=== PATIENT | female | born 1960 | race Caucasian/White ===

== ENCOUNTER 2018-08-10 08:50 | Day surgery (SDC) | payer OTHER, BC ==
[~2018-08-10] VITALS: Ht 167.6 cm; Wt 134.8 kg
[~2018-08-10 08:50] MED LIST: Adult Low Dose81 MG; COCONUT OIL; ESOM20 PO; ESTRADIOL PO; FISH1000; GLIP5 PO; INSDET100; MAGOXI400; META800 PO; MULVITMIND; Metformin HCl500 MG PO; NAPR500 PO; Norco 10-325 T1 EACH PO; OXYACE5T PO; OXYC5 PO; Prinivil10 MG PO; RXOXYACE PO; VITAMIN E
== END 2018-08-10 10:55 | disposition home or self-care (01) ==
LOC: ORSCSDS 08:50
PROVIDERS: Internal Medicine Gastroenterology
PROC: 0DBK8ZX Excision of Ascending Colon, Via Natural or Artificial Opening Endoscopic, Diagnostic (ICD-10-PCS; principal; 2018-08-10 10:15)
PROC: 0DBM8ZX Excision of Descending Colon, Via Natural or Artificial Opening Endoscopic, Diagnostic (ICD-10-PCS; principal; 2018-08-10 10:15)
DX: Z12.11 Encounter for screening for malignant neoplasm of colon (principal); D12.4 Benign neoplasm of descending colon; D12.3 Benign neoplasm of transverse colon; K63.5 Polyp of colon; I10 Essential (primary) hypertension; E11.9 Type 2 diabetes mellitus without complications; K21.9 Gastro-esophageal reflux disease without esophagitis; E66.01 Morbid (severe) obesity due to excess calories; Z68.42 Body mass index [BMI] 45.0-49.9, adult; Z79.899 Other long term (current) drug therapy
CPT/HCPCS: 82947; 88305; J2405; J7120

== ENCOUNTER 2022-02-19 08:51 | Day surgery (SDC) | payer BC ==
[~2022-02-19] VITALS: Ht 167.6 cm; Wt 111.7 kg
[~2022-02-19 08:51] MED LIST changes: +ACET500 PO; +ALBU90OI INH; +GABA300 PO; +HYDCHL25 PO; +LOSARTAN POTAS100 M1 PO; +Methocarbamol500 MG PO; +Norco 5-325 Ta1 EACH PO; +OZEMPIC2 MG/0.75 SQ; +SEMGLEE (Y100 UNIT/2 SQ
[2022-02-19] MEDS ORDERED: Prinivil10 MG (09:54)
--- NOTE | 2022-02-19 10:41 | NUR ---
02/19/22 1041 Natasha Rene RELAXING MEDICAITON PROVIDED BY DR. DYER. PT TOLERATED PROCEEDURE WELL
== END 2022-02-19 11:27 | disposition home or self-care (01) ==
LOC: ORSCSDS 08:51
PROVIDERS: Orthopaedic Surgery
PROC: 0LN70ZZ Release Right Hand Tendon, Open Approach (ICD-10-PCS; principal; 2022-02-19 10:30)
DX: M65.331 Trigger finger, right middle finger (principal); I10 Essential (primary) hypertension; E11.9 Type 2 diabetes mellitus without complications; E66.01 Morbid (severe) obesity due to excess calories; Z68.39 Body mass index [BMI] 39.0-39.9, adult; F17.210 Nicotine dependence, cigarettes, uncomplicated; Z79.4 Long term (current) use of insulin; Z79.899 Other long term (current) drug therapy
CPT/HCPCS: 82947; J2250; J3010

== ENCOUNTER 2023-03-03 11:54 | Day surgery (SDC) | payer OTHER ==
[~2023-03-03] VITALS: Ht 167.6 cm; Wt 121.1 kg
[~2023-03-03 11:54] MED LIST changes: +Prinivil10 MG
[2023-03-03] MEDS ORDERED: RYBELSUS3 MG PO (12:33)
[2023-03-03] MEDS ORDERED: ONDA4 (12:34)
[2023-03-03] MEDS ORDERED: OMEP20ER PO (12:34)
[2023-03-03] MEDS ORDERED: MECL25 (12:34)
[2023-03-03] MEDS ORDERED: AMLO5 PO (12:34)
[2023-03-03] MEDS ORDERED: FARXIGA10 MG PO (12:35)
[2023-03-03] MEDS ORDERED: TRAZ50 PO (12:35)
--- NOTE | 2023-03-03 12:41 | NUR ---
03/03/23 1241 Ny Campos CALL LIGHT WITHIN REACH. TETRACAINE IN LEFT EYE AT 1236 AND PLEDGETT IN AT 1238
[2023-03-03 14:00] VITALS: BP 138/74
== END 2023-03-03 14:14 | disposition home or self-care (01) ==
LOC: ORSCSDS 11:54
PROVIDERS: Ophthalmology
PROC: 08RK3JZ Replacement of Left Lens with Synthetic Substitute, Percutaneous Approach (ICD-10-PCS; principal; 2023-03-03 13:30)
DX: E11.36 Type 2 diabetes mellitus with diabetic cataract (principal); H25.13 Age-related nuclear cataract, bilateral; I10 Essential (primary) hypertension; J44.9 Chronic obstructive pulmonary disease, unspecified; F17.210 Nicotine dependence, cigarettes, uncomplicated; E66.01 Morbid (severe) obesity due to excess calories; Z68.41 Body mass index [BMI] 40.0-44.9, adult; K21.9 Gastro-esophageal reflux disease without esophagitis; Z79.4 Long term (current) use of insulin; Z79.899 Other long term (current) drug therapy; Z79.82 Long term (current) use of aspirin
CPT/HCPCS: 82947; J2001; J2250; J3010; J3301; J7040; V2632

== ENCOUNTER 2023-03-10 12:58 | Day surgery (SDC) | payer OTHER ==
[~2023-03-10] VITALS: Ht 167.6 cm; Wt 118.9 kg
[~2023-03-10 12:58] MED LIST changes: +AMLO5 PO; +FARXIGA10 MG PO; +MECL25; +OMEP20ER PO; +ONDA4; +RYBELSUS3 MG PO; +TRAZ50 PO
--- NOTE | 2023-03-10 14:07 | NUR ---
03/10/23 1407 Rashmi Hoffmann TETRACAINE IN RIGHT EYE AT 1355. PLEDGET PLACED IN RIGHT EYE AT 1357. PATIENT TOLERATED WELL.
[2023-03-10 15:00] VITALS: BP 119/70
--- NOTE | 2023-03-10 15:06 | NUR ---
03/10/23 1506 Rufina Ordaz IV REMOVED, CANNULA INTACT PT AISHWARYA WELL. PT DENIES NAUSEA AND PAIN
== END 2023-03-10 15:15 | disposition home or self-care (01) ==
LOC: ORSCSDS 12:58
PROVIDERS: Ophthalmology
PROC: 08RJ3JZ Replacement of Right Lens with Synthetic Substitute, Percutaneous Approach (ICD-10-PCS; principal; 2023-03-10 14:30)
DX: E11.36 Type 2 diabetes mellitus with diabetic cataract (principal); H25.11 Age-related nuclear cataract, right eye; Z96.1 Presence of intraocular lens; I10 Essential (primary) hypertension; J44.9 Chronic obstructive pulmonary disease, unspecified; E66.9 Obesity, unspecified; Z68.41 Body mass index [BMI] 40.0-44.9, adult; F17.210 Nicotine dependence, cigarettes, uncomplicated; Z79.4 Long term (current) use of insulin; Z79.899 Other long term (current) drug therapy
CPT/HCPCS: 82947; J2250; J3010; J3301; J7040; V2632

== ENCOUNTER 2023-04-15 11:43 | Emergency (ER) | payer OTHER ==
[~2023-04-15] VITALS: Ht 167.6 cm; Wt 126.1 kg
[2023-04-15 11:52] VITALS: BP 136/84
[2023-04-15 12:53] LABS: BASOPHILS ABSOLUTE AUTO 0.05 K/mm3 (0.00-0.23); BASOPHILS PERCENT AUTO 0 % (0-2); EOSINOPHILS ABSOLUTE AUTO 0.13 K/mm3 (0.00-0.68); EOSINOPHILS PERCENT AUTO 1 % (0-6); Hemoglobin 14.1 g/dL (11.5-16.0); IMMATURE GRAN ABSOLUTE AUTO 0.11 K/mm3 (0.00-0.10); IMMATURE GRAN PERCENT AUTO 1 % (0-1); LYMPHOCYTES ABSOLUTE AUTO 1.44 K/mm3 (0.84-5.20); LYMPHOCYTES PERCENT AUTO 10 % (21-46); MONOCYTES ABSOLUTE AUTO 0.87 K/mm3 (0.16-1.47); MONOCYTES PERCENT AUTO 6 % (4-13); Mean Corpuscular HGB 29.2 pg (26.0-34.0); Mean Corpuscular HGB Conc 34.4 g/dL (31.5-36.5); Mean Corpuscular Volume 85 fL (80-100); Mean Platelet Volume 11.1 fL (9.1-12.4); NEUTROPHILS ABSOLUTE AUTO 12.11 K/mm3 (1.96-9.15); NEUTROPHILS PERCENT AUTO 82 % (41-73); Platelet Count 243 K/mm3 (150-400); RDW Coefficient Variation 13.3 % (11.7-14.2); RDW Standard Deviation 41.4 fL (35.1-46.3); Red Blood Cell Count 4.83 M/mm3 (3.80-5.20); White Blood Cell Count 14.71 K/mm3 (4.00-11.30)
[2023-04-15 13:03] LABS: Albumin/Globulin Ratio 0.6 (0.8-1.8); Bilirubin, Total 0.5 mg/dL (0.1-1.0); Bun/Creatinine Ratio 25.3 (12.0-20.0); Calcium, Blood 9.1 mg/dL (8.5-10.1); Creatinine, Blood 0.75 mg/dL (0.40-1.00); Globulin, Blood 5.4 g/dL (2.2-4.0); Potassium, Blood 3.9 mmol/L (3.5-5.5); Total Protein, Blood 8.4 g/dL (6.4-8.2)
== END 2023-04-15 16:01 | disposition home or self-care (01) ==
LOC: ER 11:43
PROVIDERS: Student in an Organized Health Care Education/Training Program
DX: E11.621 Type 2 diabetes mellitus with foot ulcer (principal); L97.529 Non-pressure chronic ulcer of other part of left foot with unspecified severity; F17.200 Nicotine dependence, unspecified, uncomplicated; Z88.5 Allergy status to narcotic agent; Z79.4 Long term (current) use of insulin; Z79.84 Long term (current) use of oral hypoglycemic drugs; Z79.82 Long term (current) use of aspirin; Z79.899 Other long term (current) drug therapy; D72.829 Elevated white blood cell count, unspecified
CPT/HCPCS: 73630; 80053; 85025; 99283-25

== ENCOUNTER → 2023-04-15 | Outpatient (CLI) | payer OTHER | LOC: LAB SHORT 10:30 → LAB 10:30 | DX: B35.1 Tinea unguium (principal); L84 Corns and callosities; E11.42 Type 2 diabetes mellitus with diabetic polyneuropathy | CPT/HCPCS: 87070; 87077; 87186; 87205 ==

== ENCOUNTER 2025-06-05 14:34 | Emergency (ER) | payer MEDICARE, OTHER ==
[~2025-06-05] VITALS: Ht 167.6 cm; Wt 122.9 kg
[2025-06-05] MEDS ORDERED: BASAGLAR K100 UNIT/3 SC (15:15)
[2025-06-05] MEDS ORDERED: MOUNJARO7.5 MG/0.5 SQ (15:16)
[2025-06-05] MEDS ORDERED: ROSUVASTATIN CA20 MG PO (15:16)
[2025-06-05] MEDS ORDERED: SITA25T2 PO (15:17)
[2025-06-05] MEDS ORDERED: PREGABALIN75 MG PO (15:17)
[2025-06-05 15:28] LABS: BASOPHILS ABSOLUTE AUTO 0.04 K/mm3 (0.00-0.23); BASOPHILS PERCENT AUTO 1 % (0-2); EOSINOPHILS ABSOLUTE AUTO 0.18 K/mm3 (0.00-0.68); EOSINOPHILS PERCENT AUTO 2 % (0-6); Hematocrit 39.2 % (33.0-51.0); Hemoglobin 13.6 g/dL (11.5-16.0); IMMATURE GRAN ABSOLUTE AUTO 0.05 K/mm3 (0.00-0.10); IMMATURE GRAN PERCENT AUTO 1 % (0-1); LYMPHOCYTES ABSOLUTE AUTO 1.66 K/mm3 (0.84-5.20); LYMPHOCYTES PERCENT AUTO 22 % (21-46); MONOCYTES ABSOLUTE AUTO 0.52 K/mm3 (0.16-1.47); MONOCYTES PERCENT AUTO 7 % (4-13); Mean Corpuscular HGB Conc 34.7 g/dL (31.5-36.5); Mean Corpuscular Volume 85 fL (80-100); NEUTROPHILS ABSOLUTE AUTO 5.12 K/mm3 (1.96-9.15); NEUTROPHILS PERCENT AUTO 68 % (41-73); NRBC ABSOLUTE 0.00 K/mm3 (0.00-0.02); NRBC Auto 0.0 /100 WBC (0.0-0.2); Platelet Count 146 K/mm3 (150-400); RDW Coefficient Variation 13.3 % (11.7-14.2); RDW Standard Deviation 41.3 fL (35.1-46.3)
[2025-06-05] MEDS ORDERED: NS 1,000 ML IV SCH (15:45)
[2025-06-05 16:01] LABS: Alanine Aminotransfer (ALT/SGP 58.0 U/L (12-78); Albumin, Blood 3.7 g/dL (3.4-5.0); Albumin/Globulin Ratio 0.9 (0.8-1.8); Anion Gap 11.0 mmol/L (3-11); Aspartate Aminotrans (AST/SGOT 50.0 U/L (12-37); Bilirubin, Total 0.8 mg/dL (0.1-1.0); Blood Urea Nitrogen 20.0 mg/dL (8-24); CO2, Blood 24.0 mmol/L (21-32); Calcium, Blood 9.3 mg/dL (8.5-10.1); Chloride, Blood 94.0 mmol/L (98-108); Creatinine, Blood 0.71 mg/dL (0.40-1.00); Globulin, Blood 4.1 g/dL (2.2-4.0); Glucose, Blood 598.0 mg/dL (70-99); Potassium, Blood 4.6 mmol/L (3.5-5.5); Sodium, Blood 124.0 mmol/L (136-145); Total Protein, Blood 7.8 g/dL (6.4-8.2)
[2025-06-05 16:02] LABS: pH Blood Venous 7.38 (7.34-7.37)
[2025-06-05 16:14] LABS: Source, Urine Clean Catch
[2025-06-05 16:23] LABS: Bilirubin, Urine Neg (Neg); Glucose Qualitative, Urine 4+ (Neg); Ketones, Urine Neg (Neg); Leukocyte Esterase, Urine 1+ (Neg); Protein, Urine Neg (Neg); Specific Gravity, Urine 1.010 (1.003-1.022); Urobilinogen, Urine NORM (Normal)
[2025-06-05 16:29] LABS: Color, Urine Pale Yellow (P-Yellow)
[2025-06-05 16:31] LABS: Yeast/Fungi Urine Few /hpf
[2025-06-05 17:15] VITALS: BP 131/71
== END 2025-06-05 17:36 | disposition home or self-care (01) ==
LOC: ER 14:34
PROVIDERS: Emergency Medicine
DX: E11.65 Type 2 diabetes mellitus with hyperglycemia (principal); E86.0 Dehydration; F17.200 Nicotine dependence, unspecified, uncomplicated; Z90.49 Acquired absence of other specified parts of digestive tract
CPT/HCPCS: 80053; 81001; 82803; 82947; 85025; 87086; 87147; 99284; J7030